=== PATIENT | male | born 1980 | race Caucasian/White ===

== ENCOUNTER 2018-02-15 16:17 | Inpatient (IN) | payer BC ==
--- NOTE | 2018-02-15 17:18 | ER ---
Nurse's Notes [facility] Name: Leroy Daley Age: 37 yrs Sex: Male : 1980 Arrival Date: 02/15/2018 Time: 16:26 Bed 8 Private MD: Drew Atkinson Diagnosis: Cellulitis of left upper limb;Lymphangitis Presentation: 02/15 16:32 Presenting complaint: Patient states: Swelling and redness to left hand after cat aj scratch on Monday. Seen by Dr Atkinson yesterday and given ABX and tetanus. Transition of care: patient was not received from another setting of care. Onset of symptoms was February 11, 2018. Risk Assessment: Do you want to hurt yourself or someone else? Patient reports no desire to harm self or others. Initial Sepsis Screen: Does the patient meet any 2 criteria? No. Patient's initial sepsis screen is negative. Does the patient have a suspected source of infection? No. Patient's initial sepsis screen is negative. Care prior to arrival: None. 16:32 Method Of Arrival: Ambulatory 16:32 Acuity: MADI 3 aj Triage Assessment: 16:34 General: Appears in no apparent distress. comfortable, Behavior is calm, cooperative, aj appropriate for age. Pain: Complains of pain in left hand. Neuro: Level of Consciousness is awake, alert, obeys commands, Oriented to person, place, time, situation, Appropriate for age. Respiratory: Airway is patent Respiratory effort is even, unlabored, Respiratory pattern is regular, symmetrical. Derm: Skin is intact, is healthy with good turgor, redness and inflammation to left hand Skin is pink, warm \T\ dry. normal. Historical: - Allergies: 16:34 Codeine; aj - Home Meds: 16:34 Augmentin Oral [Active]; Crestor 20 mg oral tab 1 tab once daily [Active]; Bactrim DS aj Oral [Active]; - PMHx: 16:34 Hyperlipidemia; aj - PSHx: 16:34 Knee surgery; aj - Immunization history:: Adult Immunizations up to date. - Social history:: Smoking status: Patient/guardian denies using tobacco. - Ebola Screening: : Patient negative for fever greater than or equal to 101.5 degrees Fahrenheit, and additional compatible Ebola Virus Disease symptoms Patient denies exposure to infectious person Patient denies travel to an Ebola-affected area in the 21 days before illness onset No symptoms or risks identified at this time. Screenin:45 Abuse screen: Denies threats or abuse. Denies injuries from another. Nutritional bp screening: No deficits noted. Tuberculosis screening: No symptoms or risk factors identified. Fall Risk None identified. Assessment: 16:45 General: Appears in no apparent distress. uncomfortable, obese, Behavior is calm, bp cooperative, appropriate for age. Pain: Complains of pain in left hand. Neuro: Level of Consciousness is awake, alert, obeys commands, Oriented to person, place, time, situation, Appropriate for age. Cardiovascular: No deficits noted. Respiratory: Airway is patent Respiratory effort is even, unlabored, Respiratory pattern is regular, symmetrical. GI: No signs and/or symptoms were reported involving the gastrointestinal system. : No signs and/or symptoms were reported regarding the genitourinary system. EENT: No deficits noted. Derm: Skin is red, Skin temperature is hot. Musculoskeletal: Circulation, motion, and sensation intact. Range of motion: intact in all extremities, Swelling present in left hand. 18:00 Reassessment: ABX INFUSING, ADMIT IN PROCESS. bp 19:20 General: Appears in no apparent distress. Behavior is calm, cooperative, appropriate ea for age. Neuro: Level of Consciousness is awake, alert, obeys commands, Oriented to person, place, time, situation. Cardiovascular: Patient's skin is warm and dry. Respiratory: Airway is patent Respiratory effort is even, unlabored, Respiratory pattern is regular, symmetrical. GI: No signs and/or symptoms were reported involving the gastrointestinal system. 19:41 Reassessment: Report called to Vladimir PAGE on second floor. ea Vital Signs: 16:34 BP 113 / 74; Pulse 85; Resp 20; Temp 98.8; Pulse Ox 98% on R/A; Weight 150.59 kg; aj Height 5 ft. 10 in. (177.80 cm); 17:00 BP 109 / 74; Pulse 80; Resp 16; Pulse Ox 99% ; bp 18:00 BP 125 / 79; Pulse 87; Resp 16; Pulse Ox 97% ; bp 19:22 BP 119 / 74; Pulse 80; Resp 18; Pulse Ox 98% on R/A; ea 16:34 Body Mass Index 47.64 (150.59 kg, 177.80 cm) aj ED Course: 16:26 Patient arrived in ED. mr 16:27 Drew Atkinson MD is Private Physician. mr 16:33 Triage completed. aj 16:34 Arm band placed on right wrist. Patient placed in an exam room. aj 16:39 Drew Covarrubias, RN is Primary Nurse. bp 16:45 Patient has correct armband on for positive identification. Bed in low position. Call bp light in reach. Side rails up X2. 16:54 Phill Cam PA is PHCP. jr8 16:54 Sae Sneed MD is Attending Physician. jr8 17:15 Inserted saline lock: 20 gauge in right forearm, using aseptic technique. bp 17:17 Dick Whitmore MD is Hospitalizing Provider. jr8 19:20 No provider procedures requiring assistance completed. Patient admitted, IV remains in ea place. Administered Medications: 17:15 Drug: Zosyn 3.375 grams Route: IVPB; Infused Over: 60 mins; Site: right forearm; bp 18:31 Follow up: IV Status: Completed infusion; IV Intake: 100ml bp 17:15 Drug: NS 0.9% 1000 ml Route: IV; Rate: 100 ml/hr; Site: right forearm; bp 19:25 Follow up: IV Status: Infusion continued upon admission ea 18:31 Drug: vancoMYCIN 1 grams Route: IVPB; Infused Over: 2 hrs; Site: right forearm; bp 19:28 Follow up: Response: No adverse reaction; IV Status: Infusion continued upon admission ea Intake: 18:31 IV: 100ml; Total: 100ml. bp Outcome: 17:18 Decision to Hospitalize by Provider. jr8 19:20 Instructed on the need for admit. ea 20:15 Patient left the ED. ak1 Signatures: Hilda Smith RN RN edgardo Emily Jauregui mr Phill Cam PA PA jr8 Erlinda Bowman RN RN ak1 Rosalie Kruger RN RN ea Peltier, Brian, CAMILO RN bp
--- NOTE | 2018-02-15 17:18 | EDPHYS ---
Physician Documentation [facility] Name: Leroy Daley Age: 37 yrs Sex: Male : 1980 Arrival Date: 02/15/2018 Time: 16:26 Bed 8 Private MD: Drew Atkinson ED Physician Sae Sneed HPI: 02/15 17:12 This 37 yrs old Male presents to ER via Ambulatory with complaints of Hand jr8 Swelling. 17:12 The patient or guardian reports pain, swelling, tenderness, redness. The complaints jr8 affect the left hand diffusely. Onset: The symptoms/episode began/occurred acutely, 2 day(s) ago. Modifying factors: The symptoms are alleviated by nothing, the symptoms are aggravated by nothing. Associated signs and symptoms: Pertinent positives: fever. Severity of symptoms: At their worst the symptoms were moderate, in the emergency department the symptoms are unchanged. The patient has not experienced similar symptoms in the past. The patient has been recently seen by a physician:. Patient stated that he was bit by a cat a couple of days ago. Had hit the back of his hand while at work. On Monday the swelling started and has been getting worse ever since. Saw PCP and was started on antibiotics but still spreading . Historical: - Allergies: 16:34 Codeine; aj - Home Meds: 16:34 Augmentin Oral [Active]; Crestor 20 mg oral tab 1 tab once daily [Active]; Bactrim DS aj Oral [Active]; - PMHx: 16:34 Hyperlipidemia; aj - PSHx: 16:34 Knee surgery; aj - Immunization history:: Adult Immunizations up to date. - Social history:: Smoking status: Patient/guardian denies using tobacco. - Ebola Screening: : Patient negative for fever greater than or equal to 101.5 degrees Fahrenheit, and additional compatible Ebola Virus Disease symptoms Patient denies exposure to infectious person Patient denies travel to an Ebola-affected area in the 21 days before illness onset No symptoms or risks identified at this time. ROS: 17:12 Eyes: Negative for injury, pain, redness, and discharge, ENT: Negative for injury, jr8 pain, and discharge, Neck: Negative for injury, pain, and swelling, Cardiovascular: Negative for chest pain, palpitations, and edema, Respiratory: Negative for shortness of breath, cough, wheezing, and pleuritic chest pain, Abdomen/GI: Negative for abdominal pain, nausea, vomiting, diarrhea, and constipation, Back: Negative for injury and pain, MS/Extremity: Negative for injury and deformity, Neuro: Negative for headache, weakness, numbness, tingling, and seizure. 17:12 Skin: Positive for erythema, swelling. Exam: 17:12 Eyes: Pupils equal round and reactive to light, extra-ocular motions intact. Lids and jr8 lashes normal. Conjunctiva and sclera are non-icteric and not injected. Cornea within normal limits. Periorbital areas with no swelling, redness, or edema. ENT: Nares patent. No nasal discharge, no septal abnormalities noted. Tympanic membranes are normal and external auditory canals are clear. Oropharynx with no redness, swelling, or masses, exudates, or evidence of obstruction, uvula midline. Mucous membranes moist. Neck: Trachea midline, no thyromegaly or masses palpated, and no cervical lymphadenopathy. Supple, full range of motion without nuchal rigidity, or vertebral point tenderness. No Meningismus. Cardiovascular: Regular rate and rhythm with a normal S1 and S2. No gallops, murmurs, or rubs. Normal PMI, no JVD. No pulse deficits. Respiratory: Lungs have equal breath sounds bilaterally, clear to auscultation and percussion. No rales, rhonchi or wheezes noted. No increased work of breathing, no retractions or nasal flaring. Abdomen/GI: Soft, non-tender, with normal bowel sounds. No distension or tympany. No guarding or rebound. No evidence of tenderness throughout. Back: No spinal tenderness. No costovertebral tenderness. Full range of motion. MS/ Extremity: Pulses equal, no cyanosis. Neurovascular intact. Full, normal range of motion. Neuro: Awake and alert, GCS 15, oriented to person, place, time, and situation. Cranial nerves II-XII grossly intact. Motor strength 5/5 in all extremities. Sensory grossly intact. Cerebellar exam normal. Normal gait. 17:12 Skin: diffuse hand swelling and erythema to dorsum of left hand with reactive lymphangitis noted up to the elbow level . Vital Signs: 16:34 BP 113 / 74; Pulse 85; Resp 20; Temp 98.8; Pulse Ox 98% on R/A; Weight 150.59 kg; aj Height 5 ft. 10 in. (177.80 cm); 17:00 BP 109 / 74; Pulse 80; Resp 16; Pulse Ox 99% ; bp 18:00 BP 125 / 79; Pulse 87; Resp 16; Pulse Ox 97% ; bp 19:22 BP 119 / 74; Pulse 80; Resp 18; Pulse Ox 98% on R/A; ea 16:34 Body Mass Index 47.64 (150.59 kg, 177.80 cm) aj MDM: 16:54 Patient medically screened. [email or web address]] 17:12 Data reviewed: vital signs, nurses notes, lab test result(s). Data interpreted: Pulse 8 oximetry: on room air is 98 %. Interpretation: normal. Counseling: I had a detailed discussion with the patient and/or guardian regarding: the historical points, exam findings, and any diagnostic results supporting the discharge/admit diagnosis, lab results, the need for further work-up and treatment in the hospital. Physician consultation: Dick Whitmore MD was called at 17:17, was contacted at 17:17, regarding admission, to the medical/surgical unit. consult, patient's condition, and will see patient. 17:52 ED course: Consulted Dr. Preciado and will see patient. [facility] [email or web address]] 02/15 17:08 Order name: CBC with Diff; Complete Time: 18:02 [facility] [email or web address]] 02/15 17:08 Order name: Basic Metabolic Panel; Complete Time: 18:09 [facility] [[email or web address]] 02/15 17:08 Order name: Blood Culture Adult (2) [facility] [[email or web address]] 02/15 17:36 Order name: Basic Metabolic Panel [facility] 02/15 17:36 Order name: Basic Metabolic Panel [facility] 02/15 17:36 Order name: Basic Metabolic Panel [facility] 02/15 17:36 Order name: Basic Metabolic Panel [facility] 02/15 17:36 Order name: CBC with Automated Diff [facility] 02/15 17:36 Order name: CBC with Automated Diff [facility] 02/15 17:36 Order name: CBC with Automated Diff [facility] 02/15 17:36 Order name: CBC with Automated Diff [facility] 02/15 17:51 Order name: XRAY Hand LEFT 3 View [facility] [[email or web address] 02/15 19:24 Order name: RAD; Complete Time: 19:25 [facility] 02/15 17:08 Order name: IV; Complete Time: 17:52 [facility] [[email or web address] 02/15 17:36 Order name: CONS Pharmacy Consult [facility] 02/15 17:36 Order name: CONS Physician Consult [facility] 02/15 17:36 Order name: NPO [facility] 02/15 17:36 Order name: Regular [facility] Administered Medications: 17:15 Drug: Zosyn 3.375 grams Route: IVPB; Infused Over: 60 mins; Site: right forearm; bp 18:31 Follow up: IV Status: Completed infusion; IV Intake: 100ml bp 17:15 Drug: NS 0.9% 1000 ml Route: IV; Rate: 100 ml/hr; Site: right forearm; bp 19:25 Follow up: IV Status: Infusion continued upon admission ea 18:31 Drug: vancoMYCIN 1 grams Route: IVPB; Infused Over: 2 hrs; Site: right forearm; bp 19:28 Follow up: Response: No adverse reaction; IV Status: Infusion continued upon admission ea Disposition: 02/16 07:45 Co-signature as Attending Physician, Sae Sneed MD I agree with the assessment and kdr plan of care. Disposition: 02/15/18 17:18 Hospitalization ordered by Dick Whitmore for Inpatient Admission. Preliminary diagnosis are Cellulitis of left upper limb, Lymphangitis. - Bed requested for Telemetry/MedSurg (Inpatient). - Status is Inpatient Admission. ak1 - Condition is Stable. - Problem is new. - Symptoms are unchanged. UTI on Admission? No Signatures: Dispatcher [employer] [facility] Deana Burnette RN RN kl Myers, Amanda RN Sae Calvert MD MD kdr Roszak, Josh, PA PA jr8 Erlinda Bowman RN RN nvDrew Hercules RN RN bp Antunez, Elena RN ea Corrections: (The following items were deleted from the chart) 02/15 19:12 17:18 Hospitalization Ordered by Dick Whitmore MD for Inpatient Admission. Preliminary kl diagnosis is Cellulitis of left upper limb; Lymphangitis. Bed requested for Telemetry/MedSurg (Inpatient). Status is Inpatient Admission. Condition is Stable. Problem is new. Symptoms are unchanged. UTI on Admission? No. jr8 20:15 19:12 02/15/2018 17:18 Hospitalization Ordered by Dick Whitmore MD for Inpatient ak1 Admission. Preliminary diagnosis is Cellulitis of left upper limb; Lymphangitis. Bed requested for Telemetry/MedSurg (Inpatient). Status is Inpatient Admission. Condition is Stable. Problem is new. Symptoms are unchanged. UTI on Admission? No. kl
[2018-02-15] MEDS ORDERED: MORPHINE 2 MG/ML SYR IV PRN (17:33)
[2018-02-15] MEDS ORDERED: ONDANSETRON 4 MG/2 ML VIAL IV PRN (17:33)
[2018-02-15] MEDS ORDERED: NA CHLORIDE 0.9% 1,000 ML ONE (17:50)
[2018-02-15] MEDS ORDERED: VANCOMYCIN 1 GM/250 ML BAG ONE (17:50)
[2018-02-15] MEDS ORDERED: PIPER/TAZO/NS 3.375gm 3.375 GM/100 ML BAG ONE (17:50)
[2018-02-15 17:53] LABS: Absolute Lymphocytes (CBC) 1.3 K/uL (0.7-4.9); Absolute Monocytes 1.2 K/uL (0.1-1.3); Absolute Neutrophil 10.3 K/uL (1.8-8.0); Basophils % 0.6 % (0-1.3); Eosinophils % 0.8 % (0-4.4); Hematocrit 40.9 % (39.6-49.0); Lymphocytes % 10.3 % (15.3-44.8); MCH 30.1 pg (27.0-35.0); Monocytes % 9.5 % (3.3-12.3); RBC Red Blood Cell Count 4.76 M/uL (4.33-5.43)
[2018-02-15] MEDS: PIPER/TAZO/NS 3.375gm 3.375 GM/100 ML BAG IVPB SCH (18:00)
[2018-02-15] MEDS: NA CHLORIDE 0.9% 1,000 ML IV SCH (18:00)
[2018-02-15 18:08] LABS: Potassium 3.9 mmol/L (3.5-5.1)
--- NOTE | 2018-02-15 19:23 | RAD REPORT ---
EXAM DESCRIPTION: RAD -Hand Left 3 View - 02/15/2018 6:47 pm CLINICAL HISTORY: Left hand pain FINDINGS: No fracture or dislocation is seen. Soft tissue swelling is present. No bony destructive lesions seen
[2018-02-15] MEDS: VANCOMYCIN 2 GM in NA CHLORIDE 0.9% 500 ML IVPB SCH (21:00)
[2018-02-15] MEDS ORDERED: VANCOMYCIN/NS 1 gm 1 GM/250 ML BAG IV SCH (21:00)
[2018-02-15 21:35] VITALS: BMI 47.1
[2018-02-15] MEDS: ACETAMINOPHEN 500 MG TAB PO PRN (22:57)
[2018-02-15] MEDS: BENZONATATE 100 MG CAP PO PRN (23:36)
[2018-02-15] MEDS: MEPERIDINE HCL 25 MG/0.5 ML IV PRN (23:41)
[2018-02-16] MEDS: PIPER/TAZO/NS 3.375gm 3.375 GM/100 ML BAG IVPB SCH ×3 (01:48→17:30)
[2018-02-16 05:26] LABS: Absolute Lymphocytes (CBC) 1.9 K/uL (0.7-4.9); Absolute Neutrophil 5.5 K/uL (1.8-8.0); Basophils % 0.5 % (0-1.3); Eosinophils % 1.9 % (0-4.4); Lymphocytes % 21.7 % (15.3-44.8); MCH 30.4 pg (27.0-35.0); Monocytes % 11.8 % (3.3-12.3); RBC Red Blood Cell Count 4.37 M/uL (4.33-5.43)
[2018-02-16] MEDS: NA CHLORIDE 0.9% 1,000 ML IV SCH ×2 (05:30→17:30)
[2018-02-16 05:46] LABS: Potassium 3.9 mmol/L (3.5-5.1)
[2018-02-16] MEDS ORDERED: AZITHROMYCIN IV 500 MG in NA CHLORIDE 0.9% 250 ML IVPB ONE (07:17)
--- NOTE | 2018-02-16 07:27 | P.HP ---
Certification for Inpatient Patient admitted to: Inpatient With expected LOS: >2 Midnights Patient will require the following post-hospital care: None Practitioner: I am a practitioner with admitting privileges, knowledge of patient current condition, hospital course, and medical plan of care. Services: Services provided to patient in accordance with Admission requirements found in Title 42 Section 412.3 of the Code of Federal Regulations Patient History Date of Service: 02/15/18 Reason for admission: Cat scratch History of Present Illness: Patient is a 37-year-old gentleman who came into the hospital with erythema of the left hand. He apparently received a bite from is cat last Monday. Patient went to work he said his and was in a water solution and he hit his and rule hard against a basin. His her hand turned red the next day. It got progressively worse and he has some streaking up to his elbow. He decided to come into the ER for further evaluation. He has been started on IV antibiotics. He has surgery has been consulted. Will admit patient to the hospital for further workup. Allergies codeine Allergy (Verified 02/15/18 19:55) Itching/Hives/Rash Home Medications: Amoxicillin/Potassium Clav [Amox-Clav 875-125 mg Tablet] 1 each PO BID 02/15/18 Phentermine HCl [Adipex-P] 37.5 mg PO DAILY 02/15/18 Rosuvastatin Calcium 20 mg PO DAILY 02/15/18 Sulfamethoxazole/Trimethoprim [Sulfamethoxazole-Tmp Ds Tablet] 1 each PO BID - Past Medical/Surgical History Has patient received pneumonia vaccine in the past: No Diabetic: No -: hyperlipidemia -: knee leg, left wrist surgery - Family History Father Family History: Reviewed- Non-Contributory - Social History Smoking Status: Former smoker Alcohol use: Yes CD- Drugs: No Caffeine use: Yes Place of Residence: Home Review of Systems 10-point ROS is otherwise unremarkable Physical Examination - Vital Signs Temperature: 97.9 F Blood Pressure: 106/65 Pulse: 67 Respirations: 20 Pulse Ox (%): 96 - Physical Exam General: Alert, In no apparent distress, Oriented x3 HEENT: Atraumatic, PERRLA, Mucous membr. moist/pink, EOMI, Sclerae nonicteric Neck: Supple, 2+ carotid pulse no bruit, No LAD, Without JVD or thyroid abnormality Respiratory: Clear to auscultation bilaterally, Normal air movement Cardiovascular: Regular rate/rhythm, Normal S1 S2, No murmurs Gastrointestinal: Normal bowel sounds, Soft and benign, Non-distended, No tenderness Musculoskeletal: No tenderness Integumentary: Rash(es), Tenderness/swelling, Erythema Neurological: Normal gait, Normal speech, Normal strength at 5/5 x4 extr, Normal tone, Sensation intact, Cranial nerves 3-12 intact, Normal affect Lymphatics: No axilla or inguinal lymphadenopathy - Studies Laboratory Data (last 24 hrs) 02/15/18 17:35: Sodium 139, Potassium 3.9, BUN 10, Creatinine 1.10, Glucose 117 H 02/15/18 17:35: WBC 13.0 H, Hgb 14.3, Hct 40.9, Plt Count 260 Assessment & Plan - Problems (Diagnosis) (1) Cellulitis Current Visit: Yes Status: Acute (2) Cat bite involving extremity Current Visit: Yes Status: Acute - Plan 1. Continue with IV antibiotic 2. Monitor patient neurovascularly 3. Hand surgery consultation 4. Gentle IV hydration 5. Monitor CBC 6. Pain control 7. GI and DVT prophylaxis Discharge Plan: Home Plan to discharge in: Greater than 2 days - Advance Directives Does patient have a Living Will: No Does patient have a Durable POA for Healthcare: No - Code Status/Comfort Care Code Status Assessed: Yes Code Status: Full Code Critical Care: No Time Spent Managing PTS Care (In Minutes): 50
[2018-02-16] MEDS: PHENTERMINE HCL 37.5 MG PO SCH (09:00)
--- NOTE | 2018-02-16 09:00 | RAD REPORT ---
EXAM DESCRIPTION: CT - Hand Left W Con - 02/16/2018 8:03 am CLINICAL HISTORY: Hand pain and swelling secondary to a cat bite COMPARISON: None. TECHNIQUE: Computed axial tomography of the left hand with coronal and sagittal reconstruction. 50 c c [id number]. All CT scans are performed using dose optimization technique as appropriate and may include automated exposure control or mA/KV adjustment according to patient size. FINDINGS: Diffuse edema is present within the dorsal soft tissues of the hand. An abscess is not seen. No bony destructive lesion is noted. A foreign body is not seen. No fracture or dislocation IMPRESSION: Right hand cellulitis
[2018-02-16] MEDS: VANCOMYCIN 2 GM in NA CHLORIDE 0.9% 500 ML IVPB SCH ×2 (10:35→21:08)
[2018-02-16] MEDS: MEPERIDINE HCL 25 MG/0.5 ML IV PRN (18:48)
--- NOTE | 2018-02-16 20:04 | PN ---
Date of Progress Note: 02/16/2018 Subjective: The patient seen and examined, chart reviewed and case discussed with RN. The patient h ad a CT of the hand done, did not show any abscess. However, the patient did not wish to have any shi rgery and declined. The patient was then back up to the floor. Medications: List reviewed. Physical Examination: Vital Signs: Temperature 97.2, heart rate 66, blood pressure 124/63, respirations 18, O2 97% on room air. General: Awake, alert, oriented x3. Some mild distress due to pain. Morbidly obese, ill-appearing male. CV: S1 and S2. Regular rate and rhythm. Peripheral pulses are present. No murmurs. Respiratory: Moving air well bilaterally. No wheezing or stridor. Gastrointestinal: Abdomen is soft, nontender, nondistended. Positive bowel sounds. No guarding or rigidity. Extremities: No clubbing or cyanosis. The patient does have edema of the left upper extremity. No calf tenderness. SKIN: Left hand erythema extending up to the arm with some warmth to touch and however, no fluctuanc e. Neuro: Cranial nerves 2 through 12 intact grossly. No focal neurological deficits. Sensation intac t to light touch. Speech is normal. Laboratory Data: Sodium 140, potassium 3.9, chloride 108, CO2 23, BUN 10, creatinine 1, glucose 111, calcium 8.7. WBC 8.6, H and H 13 and 38, platelets 211, neutrophils 64%. Blood cultures pending. CT scan of the hand shows left hand cellulitis. No abscess. No bony destructive lesion. No foreign body, fracture or dislocation. Assessment And Plan: A 37-year-old male with: 1.Left hand cellulitis. We will continue with IV antibiotics. Appreciate Dr. Plummer's input. N o abscess seen on CT. We will follow up on cultures. 2.Cat bite involving extremity. 3.Morbid obesity, BMI 47. 4.Neutrophilic leukocytosis, resolved. 5.Hyperlipidemia. Continue statin. 6.Gastrointestinal and deep venous thrombosis prophylaxis addressed. PPI and SCDs. No chemical ant icoagulation due to possible intervention. Continue with pain control. Continue IV fluids. We will discuss further with Dr. Plummer. 7.Likely discharge in the next 24 hours if continues to improve. SA/MODL Voice ID: [id number] Report ID: [id number]
[2018-02-16] MEDS ORDERED: ROSUVASTATIN 10 MG TAB PO SCH (21:00)
[2018-02-16] MEDS: BENZONATATE 100 MG CAP PO PRN (21:09)
[2018-02-17] MEDS: PIPER/TAZO/NS 3.375gm 3.375 GM/100 ML BAG IVPB SCH ×2 (00:20→09:53)
[2018-02-17 05:10] LABS: Absolute Lymphocytes (CBC) 1.9 K/uL (0.7-4.9); Absolute Monocytes 1.2 K/uL (0.1-1.3); Absolute Neutrophil 4.3 K/uL (1.8-8.0); Basophils % 0.8 % (0-1.3); Eosinophils % 5.6 % (0-4.4); Hematocrit 39.2 % (39.6-49.0); Lymphocytes % 23.9 % (15.3-44.8); MCH 30.1 pg (27.0-35.0); MCV 87.3 fL (80-100); Monocytes % 14.7 % (3.3-12.3)
--- NOTE | 2018-02-17 08:16 | CON ---
History Of Present Illness: The patient is a 37-year-old white male, right-hand dominant, was bitten 5 days ago by a cat over the left nondominant hand over the little finger metacarpal area and middle finger metacarpal area dorsally. Tetanus was given 2 days later. He has a history of high choleste rol. 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 Social History: Does not smoke. Drinks occasionally. Allergies: NO ALLERGIES. Medications: He is on Crestor and phentermine. Physical Examination: General: He is 5 feet 10 inches, 328 pounds. Musculoskeletal: On examination, he has erythema over the dorsum of the left hand extending over all the metacarpals extending towards the PIP joint dorsally and slightly proximal to the wrist. The bi brooks over the little finger and over the middle finger metacarpal head region. There is no punctate, no focal tenderness, just diffuse tenderness in the hand. He is able to flex were discuss ed with the patient. Plan: Plan at this time is to observe him, treat him with IV antibiotics, and if not improved, then surgery tomorrow. Expressed we are going to watch him for 1 day. GAIL/CHIARA Voice ID: [id number] Report ID: [id number]
[2018-02-17] MEDS: PHENTERMINE HCL 37.5 MG PO SCH (09:00)
[2018-02-17] MEDS: VANCOMYCIN 2 GM in NA CHLORIDE 0.9% 500 ML IVPB SCH (09:53)
[2018-02-17] MEDS: NA CHLORIDE 0.9% 1,000 ML IV SCH ×2 (10:00)
[2018-02-17] MEDS ORDERED: NA CHLORIDE 0.9% 1,000 ML IV ONE (10:20)
[2018-02-17] MEDS: ACETAMINOPHEN 500 MG TAB PO PRN (11:09)
[2018-02-17 12:03] VITALS: O2SAT 95
[2018-02-17 18:37] VITALS: BP 115/56; TEMP 97.2
--- NOTE | 2018-02-18 11:36 | DS ---
Date of Discharge: 02/17/2018 The patient's hand is improving. The erythema has almost completely gone. He can make a fist ____. Tenderness is absent over the puncture site . Plan will be to continue the antibiot ics and observation. He can be discharged. Return to office on Monday at 9 o'clock at [place]. GAIL/CHIARA Voice ID: [id number] Report ID: [id number]
--- NOTE | 2018-02-18 11:36 | DS ---
Date of Discharge: 02/17/2018 Consultants: Dr. Plummer. Procedures: None. Admitting Diagnoses: 1.Cellulitis, left upper extremity. 2.Cat bite of the left upper extremity. Discharge Diagnoses: 1.Cellulitis of the left upper extremity including the hand, improving. Blood cultures negative. 2.Cat bite involving the left upper extremity. 3.Morbid obesity, BMI 47. 4.Neutrophilic leukocytosis, resolved. 5.Hyperlipidemia, statin. Hospital Course: The patient is a 37-year-old male with past medical history of hyperlipidemia, morb id obesity, comes in with cellulitis of his left hand with recent cat bite. The patient was given Au gmentin and Bactrim by his PCP, had taken 2 doses on day 1, however, had worsening symptoms, therefor e came into the ER. Upon arrival, he had white blood cell count of 13,000 with left shift, however, was not septic appearing. The patient was started on IV antibiotics, and blood cultures were obtaine d. Dr. Plummer with Plastic Surgery was consulted. He did not recommend any surgical intervention . CT scan of the hand was done, which did not show any abscess, therefore no I and D was recommended . The patient improved significantly with IV antibiotics and had improvement in his erythema, pain, and swelling. The patient also had symptomatic relief with ice and elevation. The patient was other benites doing well. He was afebrile. His white blood cell count had normalized. He was then cleared f or discharge. Dr. Plummer did not recommend any surgical intervention. The patient was then disch arged home in a stable condition. Activity: As tolerated. Medications: As per medication consultation list. Finish course of Augmentin and Bactrim for cellul itis. Followup: Follow up with primary care physician in 2 to 3 days. Follow up with Dr. Plummer on Mon at 8 a.m. in his office. Return to ER for worsening condition. Diet: Calorie-restricted diet. Activity: As tolerated. Physical Examination: General: Awake, alert, oriented, no acute distress. A morbidly obese male. CV: S1 and S2. No murmurs. Respiratory: Moving well bilaterally. Abdomen: Soft, nontender, nondistended. Positive bowel sounds. Extremities: No clubbing or cyanosis. Left upper extremity edema. Skin: Left hand erythema, swelling, warm to touch. Significantly improved. No tenderness. Neurologic: Nonfocal. Total time spent discharging the patient was 35 minutes. /CHIARA Voice ID: [id number] Report ID: [id number]
== END 2018-02-17 16:29 | disposition home or self-care (01) | DRG 603 ==
LOC: ER 16:17 → ERHOLD 18:04 → 2ND 19:43
PROVIDERS: ADMIT Family Medicine; ATTEND Hospitalist
DX: L03.114 Cellulitis of left upper limb (principal); Z68.42 Body mass index [BMI] 45.0-49.9, adult; S61.452A Open bite of left hand, initial encounter; W55.01XA Bitten by cat, initial encounter; Y92.009 Unspecified place in unspecified non-institutional (private) residence as the place of occurrence of the external cause; E66.01 Morbid (severe) obesity due to excess calories; D72.829 Elevated white blood cell count, unspecified; E78.5 Hyperlipidemia, unspecified
CPT/HCPCS: 36415; 73201; 80048; 80202; 85025; 87040; 94760; 96365; 96367; 99283; J0456; J2175; J2543; J3370; J7030; Q9967